=== PATIENT | female | born 1960 | race African-American/Black ===

== ENCOUNTER 2018-09-08 15:50 | Emergency (ER) | payer SELFPAY ==
[~2018-09-08] VITALS: Ht 162.6 cm; Wt 59.0 kg
[2018-09-08] MEDS ORDERED: HYDROCODONE/ACETAMINOPHEN 5/325MG TABLET PO ONE (19:00)
[2018-09-08 19:34] VITALS: BP 125/81
== END 2018-09-08 20:36 | disposition home or self-care (01) ==
LOC: ER 15:50
DX: S80.12XA Contusion of left lower leg, initial encounter (principal); S80.11XA Contusion of right lower leg, initial encounter; V03.99XA Pedestrian with other conveyance injured in collision with car, pick-up truck or van, unspecified whether traffic or nontraffic accident, initial encounter; Y93.01 Activity, walking, marching and hiking; Y92.89 Other specified places as the place of occurrence of the external cause; Y99.8 Other external cause status
CPT/HCPCS: 73610; 73630; 99283